=== PATIENT | female | born 1970 | race Caucasian/White ===

== ENCOUNTER 2018-06-11 17:09 | Observation (INO) | payer MEDICARE, OTHER ==
[~2018-06-11] VITALS: Ht 167.6 cm; Wt 82.8 kg
[~2018-06-11 17:09] MED LIST: ALBU8.5H8 INH; AMIT50TA PO; AMITIZA PO; ASCO100019 PO; CHOL3000 PO; GABA300C10 PO; LEVO125T5 PO; LIOT25TA3 PO; MODA100T22 PO; NAPR220T77 PO; OXYC-307 PO; ZOLP10TA PO; [UNRECOGNIZED DRUG - CODE] TD
[2018-06-11 17:39] LABS: BASOPHILS # (AUTO) 0.03 x10^3/uL (0-0.1); BASOPHILS % (AUTO) 1 % (0-1); EOSINOPHILS # (AUTO) 0.26 x10^3/uL (0-0.4); EOSINOPHILS % (AUTO) 4 % (1-7); LYMPHOCYTES # (AUTO) 2.24 x10^3/uL (1-3.4); LYMPHOCYTES % (AUTO) 33 % (22-44); MD NO; MEAN CORPUSCULAR HEMOGLOBIN 31.7 pg (27.0-34.8); MEAN CORPUSCULAR HGB CONC 33.7 g/dL (32.4-35.8); MEAN CORPUSCULAR VOLUME 93.9 fL (80-100); MEAN PLATELET VOLUME 8.1 fL (7.4-10.4); MONOCYTES # (AUTO) 0.57 x10^3/uL (0.2-0.8); MONOCYTES % (AUTO) 8 % (2-9); NEUTROPHILS % (AUTO) 55 % (42-75); PLATELET COUNT 236 x10^3/uL (130-400); RED BLOOD COUNT 4.93 x10^6/uL (3.82-5.3); RED CELL DISTRIBUTION WIDTH 13.8 % (9.6-15.2)
[2018-06-11 17:48] LABS: ANION GAP 4 mmol/L (5-15); CALCIUM 8.8 mg/dL (8.5-10.1); CHLORIDE 105 mmol/L (98-107)
[2018-06-11 17:54] LABS: ALANINE AMINOTRANSFERASE 374 U/L (12-78); ALKALINE PHOSPHATASE 107 U/L (45-117); BILIRUBIN,TOTAL 0.4 mg/dL (0.2-1.0); FREE T4 (FREE THYROXINE) 0.56 ng/dL (0.76-1.46); TOTAL PROTEIN 7.2 g/dL (6.4-8.2); TROPONIN I < 0.015 ng/mL (0.000-0.045)
--- NOTE | 2018-06-11 19:23 | NUR ---
TO ROOM FROM LOBBY. NAD.
--- NOTE | 2018-06-11 20:01 | NUR ---
PT SENT BY MD FOR HIGH HR 130'S IN TRIAGE. HR IMPROVED IN ROOM. VSS. PIV STARTED. PT TO US.
[2018-06-11] MEDS ORDERED: HYDROmorphone 1 MG/ML, 1ML ONE (20:35)
[2018-06-11] MEDS: HYDROmorphone 2 MG/ML, 1ML IVPush PRN (20:37)
[2018-06-11] MEDS ORDERED: GABA800T5 PO (20:41)
[2018-06-11] MEDS ORDERED: OMNIPAQUE 350 MG/ML, 100ML BOTTLE ONE (21:00)
[2018-06-11] MEDS ORDERED: ONDANSETRON 2MG/ML, 2ML ONE (21:25)
[2018-06-11] MEDS ORDERED: ONDANSETRON 2MG/ML, 2ML IVPush ONE (21:30)
--- NOTE | 2018-06-11 21:33 | NUR ---
PT MEDICATED FOR PAIN AND NAUSEA. VSS. PT TO BE ADMITTED. CALL LIGHT IN REACH
--- NOTE | 2018-06-11 21:49 | NUR ---
RECEIVED REPORT FROM TOBIAS MARTIN, ASSUMING CARE OF PT AT THIS TIME
--- NOTE | 2018-06-11 21:50 | NUR ---
AWAITING ADMIT ORDER AT THIS TIME FOR PT PLACEMENT
--- NOTE | 2018-06-11 21:58 | NUR ---
MD TO BEDSIDE TO UPDATE PT AND FAMILY ON POC
--- NOTE | 2018-06-11 22:43 | NUR ---
HOSPITALIST TO BEDSIDE FOR ASSESSMENT AND ADMIT
--- NOTE | 2018-06-11 22:49 | NUR ---
REPORT GIVEN TO LEXY MARTIN, PT BEING TRANSFERED TO FLOOR
[2018-06-11 23:21] VITALS: BP 135/85
[2018-06-12] MEDS: HYDROmorphone 2 MG/ML, 1ML IVPush PRN ×6 (00:01→21:20)
[2018-06-12] MEDS ORDERED: hydrALAzine 20 MG/ML, 1ML IVPush PRN (01:30)
[2018-06-12] MEDS ORDERED: POLYETHYLENE GLYCOL 17 GM PACKET PO PRN (01:30)
[2018-06-12] MEDS ORDERED: BISACODYL 10 MG SUPP PR PRN (01:30)
[2018-06-12] MEDS ORDERED: ACETAMINOPHEN 325 MG TABLET PO PRN (01:30)
[2018-06-12] MEDS ORDERED: PROMETHAZINE 25 MG/ML, 1ML IM PRN (01:30)
[2018-06-12] MEDS ORDERED: ONDANSETRON 2MG/ML, 2ML IVPush PRN (01:30)
[2018-06-12] MEDS ORDERED: DOCUSATE 100 MG CAPSULE PO PRN (01:30)
[2018-06-12] MEDS ORDERED: LABETALOL 5 MG/ML SYRINGE IVPush PRN (01:30)
[2018-06-12] MEDS ORDERED: OXYcodone IR 5MG TABLET PO PRN (01:30)
[2018-06-12] MEDS ORDERED: NITROGLYCERIN 0.4 MG BOTTLE (25 TABS) SL PRN (01:30)
[2018-06-12 01:59] VITALS: BP_SYST 114; BP_SYST 122; BP_DIAS 78; BP_DIAS 83
[2018-06-12 02:07] LABS: BASOPHILS # (AUTO) 0.02 x10^3/uL (0-0.1); BASOPHILS % (AUTO) 0 % (0-1); EOSINOPHILS # (AUTO) 0.25 x10^3/uL (0-0.4); EOSINOPHILS % (AUTO) 4 % (1-7); LYMPHOCYTES # (AUTO) 1.91 x10^3/uL (1-3.4); LYMPHOCYTES % (AUTO) 30 % (22-44); MD NO; MEAN CORPUSCULAR HEMOGLOBIN 31.4 pg (27.0-34.8); MEAN CORPUSCULAR HGB CONC 33.7 g/dL (32.4-35.8); MEAN CORPUSCULAR VOLUME 93.1 fL (80-100); MEAN PLATELET VOLUME 8.1 fL (7.4-10.4); MONOCYTES # (AUTO) 0.61 x10^3/uL (0.2-0.8); MONOCYTES % (AUTO) 10 % (2-9); NEUTROPHILS # (AUTO) 3.55 x10^3/uL (1.8-6.8); NEUTROPHILS % (AUTO) 56 % (42-75); PLATELET COUNT 204 x10^3/uL (130-400); RED BLOOD COUNT 4.76 x10^6/uL (3.82-5.3); RED CELL DISTRIBUTION WIDTH 13.5 % (9.6-15.2)
[2018-06-12] MEDS: PANTOPRAZOLE 40 MG IV IVPush SCH ×2 (02:07→13:30)
[2018-06-12] MEDS: ONDANSETRON ODT 4 MG PO PRN ×2 (02:07→09:29)
[2018-06-12] MEDS: HEPARIN 5,000 UNITS/ML, 1ML SQ SCH ×3 (02:07→15:17)
[2018-06-12] MEDS: SODIUM CHLORIDE 0.9% 1,000 ML IV SCH ×2 (02:08→15:00)
[2018-06-12 02:13] LABS: ALANINE AMINOTRANSFERASE 356 U/L (12-78); ALBUMIN 3.8 g/dL (3.4-5.0); ANION GAP 7 mmol/L (5-15); CALCIUM 8.2 mg/dL (8.5-10.1); CHLORIDE 108 mmol/L (98-107); CHOLESTEROL, TOTAL 209 mg/dL (140-239); CREATININE 0.74 mg/dL (0.55-1.02)
[2018-06-12 02:16] LABS: ALKALINE PHOSPHATASE 91 U/L (45-117); BILIRUBIN,TOTAL 0.6 mg/dL (0.2-1.0); CHOL/HDL RATIO 2.8; HDL CHOL % 35 % (28-40); HDL CHOLESTEROL (DIRECT) 74 mg/dL (40-60); LDL CHOLESTEROL,CALCULATED 124 mg/dL (54-169); LDL/HDL RATIO 1.7 (0.5-3.0); TOTAL PROTEIN 6.8 g/dL (6.4-8.2); TRIGLYCERIDES 57 mg/dL (50-200); VLDL CHOLESTEROL 11 mg/dL (0-25)
[2018-06-12] MEDS: AMITRIPTYLINE 50 MG TABLET PO SCH ×2 (02:40→20:41)
[2018-06-12] MEDS: GABAPENTIN 400 MG CAPSULE PO SCH ×4 (02:41→20:41)
[2018-06-12 02:43] LABS: FREE T4 (FREE THYROXINE) 0.61 ng/dL (0.76-1.46); TROPONIN I < 0.015 ng/mL (0.000-0.045)
[2018-06-12 03:03] LABS: MICROSCOPIC NOT IND
[2018-06-12 03:09] LABS: CULTURE INDICATED? NO
[2018-06-12 08:00] VITALS: BP 118/79
[2018-06-12] MEDS: CHOLECALCIFEROL 1,000 UNIT TABLET PO SCH (09:00)
[2018-06-12] MEDS: ASCORBIC ACID 500 MG TABLET PO SCH (09:00)
[2018-06-12] MEDS ORDERED: ALBUTEROL SULFATE 2.5 MG/3 ML NPPB SCH (09:00)
[2018-06-12] MEDS ORDERED: AMITRIPTYLINE 50 MG TABLET PO SCH (09:00)
[2018-06-12] MEDS ORDERED: GABAPENTIN 400 MG CAPSULE PO SCH (09:00)
[2018-06-12 09:23] LABS: TROPONIN I < 0.015 ng/mL (0.000-0.045)
[2018-06-12] MEDS ORDERED: REGADENOSON 0.4 MG/5 ML SYRINGE ONE (09:44)
[2018-06-12 13:30] VITALS: BP 104/66
[2018-06-12] MEDS ORDERED: ALBUTEROL SULFATE 2.5 MG/3 ML ONE (14:19)
[2018-06-12] MEDS ORDERED: ALBUTEROL SULFATE 2.5 MG/3 ML NPPB PRN (14:30)
[2018-06-12] MEDS ORDERED: CALCIUM CARBONATE 500 MG TAB.CHEW PO PRN (17:30)
[2018-06-12 19:54] VITALS: BP 104/74
[2018-06-12] MEDS: MAALOX/HYOSCYAMINE/LIDOCAINE 45 ML BTL PO PRN (20:54)
[2018-06-12] MEDS ORDERED: OMNIPAQUE 350 MG/ML, 100ML BOTTLE ONE (21:52)
[2018-06-13] MEDS: PANTOPRAZOLE 40 MG IV IVPush SCH ×2 (01:17→13:30)
[2018-06-13] MEDS: HEPARIN 5,000 UNITS/ML, 1ML SQ SCH ×3 (01:17→20:01)
[2018-06-13 01:48] VITALS: BP 108/69
[2018-06-13] MEDS: HYDROmorphone 2 MG/ML, 1ML IVPush PRN ×2 (04:05→11:32)
[2018-06-13 05:24] LABS: BASOPHILS # (AUTO) 0.03 x10^3/uL (0-0.1); BASOPHILS % (AUTO) 1 % (0-1); EOSINOPHILS % (AUTO) 4 % (1-7); LYMPHOCYTES # (AUTO) 2.16 x10^3/uL (1-3.4); LYMPHOCYTES % (AUTO) 39 % (22-44); MD NO; MEAN CORPUSCULAR HEMOGLOBIN 31.6 pg (27.0-34.8); MEAN CORPUSCULAR HGB CONC 33.5 g/dL (32.4-35.8); MEAN CORPUSCULAR VOLUME 94.5 fL (80-100); MEAN PLATELET VOLUME 8.2 fL (7.4-10.4); MONOCYTES # (AUTO) 0.55 x10^3/uL (0.2-0.8); MONOCYTES % (AUTO) 10 % (2-9); NEUTROPHILS # (AUTO) 2.61 x10^3/uL (1.8-6.8); NEUTROPHILS % (AUTO) 47 % (42-75); PLATELET COUNT 179 x10^3/uL (130-400); RED BLOOD COUNT 4.19 x10^6/uL (3.82-5.3); RED CELL DISTRIBUTION WIDTH 14.3 % (9.6-15.2)
[2018-06-13 05:35] LABS: CHLORIDE 108 mmol/L (98-107)
[2018-06-13 05:44] LABS: ALANINE AMINOTRANSFERASE 280 U/L (12-78); ALKALINE PHOSPHATASE 79 U/L (45-117); ANION GAP 5 mmol/L (5-15); BILIRUBIN,TOTAL 0.3 mg/dL (0.2-1.0); CALCIUM 7.8 mg/dL (8.5-10.1); CREATININE 0.65 mg/dL (0.55-1.02)
[2018-06-13 07:11] VITALS: BP 101/69
[2018-06-13] MEDS: MAALOX/HYOSCYAMINE/LIDOCAINE 45 ML BTL PO PRN (08:23)
[2018-06-13] MEDS ORDERED: METOCLOPRAMIDE 5 MG/ML, 2ML IVPush PRN (09:30)
[2018-06-13] MEDS: CHOLECALCIFEROL 1,000 UNIT TABLET PO SCH (10:27)
[2018-06-13] MEDS: ASCORBIC ACID 500 MG TABLET PO SCH (10:27)
[2018-06-13] MEDS: BISACODYL 10 MG SUPP PR SCH (10:28)
[2018-06-13] MEDS: GABAPENTIN 400 MG CAPSULE PO SCH ×2 (10:28→20:01)
[2018-06-13] MEDS: SENNA/DOCUSATE TABLET PO SCH (10:28)
[2018-06-13 13:08] VITALS: BP 134/84
[2018-06-13] MEDS ORDERED: MAGNESIUM CITRATE 300ML ORAL SOL PO PRN (17:00)
[2018-06-13] MEDS: METHOCARBAMOL 500 MG TABLET PO PRN (20:01)
[2018-06-13] MEDS: AMITRIPTYLINE 50 MG TABLET PO SCH (20:01)
[2018-06-13 20:31] VITALS: BP 119/81
[2018-06-14 02:40] VITALS: BP 123/81
[2018-06-14] MEDS: HEPARIN 5,000 UNITS/ML, 1ML SQ SCH ×3 (03:30→22:59)
[2018-06-14 05:03] LABS: BASOPHILS # (AUTO) 0.05 x10^3/uL (0-0.1); BASOPHILS % (AUTO) 1 % (0-1); EOSINOPHILS % (AUTO) 4 % (1-7); LYMPHOCYTES # (AUTO) 1.96 x10^3/uL (1-3.4); LYMPHOCYTES % (AUTO) 41 % (22-44); MD NO; MEAN CORPUSCULAR HEMOGLOBIN 31.6 pg (27.0-34.8); MEAN CORPUSCULAR HGB CONC 33.7 g/dL (32.4-35.8); MEAN CORPUSCULAR VOLUME 93.9 fL (80-100); MEAN PLATELET VOLUME 8.2 fL (7.4-10.4); MONOCYTES # (AUTO) 0.42 x10^3/uL (0.2-0.8); MONOCYTES % (AUTO) 9 % (2-9); NEUTROPHILS # (AUTO) 2.23 x10^3/uL (1.8-6.8); NEUTROPHILS % (AUTO) 46 % (42-75); PLATELET COUNT 176 x10^3/uL (130-400); RED BLOOD COUNT 4.57 x10^6/uL (3.82-5.3); RED CELL DISTRIBUTION WIDTH 14.2 % (9.6-15.2)
[2018-06-14 05:12] LABS: ALBUMIN 3.4 g/dL (3.4-5.0); ANION GAP 4 mmol/L (5-15); CALCIUM 8.3 mg/dL (8.5-10.1); CHLORIDE 107 mmol/L (98-107)
[2018-06-14 05:17] LABS: ALANINE AMINOTRANSFERASE 369 U/L (12-78); ALKALINE PHOSPHATASE 108 U/L (45-117); BILIRUBIN,TOTAL 0.7 mg/dL (0.2-1.0); CREATININE 0.74 mg/dL (0.55-1.02); TOTAL PROTEIN 6.3 g/dL (6.4-8.2)
[2018-06-14] MEDS ORDERED: GOLYTELY 4,000ML ORAL.SOL PO ONE (08:30)
[2018-06-14] MEDS: SENNA/DOCUSATE TABLET PO SCH (08:35)
[2018-06-14 08:39] VITALS: BP 121/87
[2018-06-14] MEDS: BISACODYL 10 MG SUPP PR SCH (09:00)
[2018-06-14] MEDS ORDERED: BISACODYL 10 MG SUPP PR SCH (09:00)
[2018-06-14] MEDS: ASCORBIC ACID 500 MG TABLET PO SCH (09:00)
[2018-06-14] MEDS: GABAPENTIN 400 MG CAPSULE PO SCH ×3 (09:00→23:00)
[2018-06-14] MEDS: CHOLECALCIFEROL 1,000 UNIT TABLET PO SCH (09:00)
[2018-06-14] MEDS: PANTOPRAZOLE 40 MG IV IVPush SCH ×2 (09:57→22:59)
[2018-06-14 12:38] VITALS: BP 125/84
[2018-06-14 19:19] VITALS: BP 117/74
[2018-06-14 21:15] VITALS: BP 122/79
[2018-06-14] MEDS: AMITRIPTYLINE 50 MG TABLET PO SCH (23:00)
[2018-06-14] MEDS: METHOCARBAMOL 500 MG TABLET PO PRN (23:03)
[2018-06-15 01:27] VITALS: BP 126/82
[2018-06-15] MEDS: HEPARIN 5,000 UNITS/ML, 1ML SQ SCH (03:30)
[2018-06-15 05:40] LABS: ALANINE AMINOTRANSFERASE 318 U/L (12-78); ALBUMIN 3.1 g/dL (3.4-5.0); ANION GAP 4 mmol/L (5-15); CHLORIDE 108 mmol/L (98-107); CREATININE 0.76 mg/dL (0.55-1.02)
[2018-06-15 05:42] LABS: ALKALINE PHOSPHATASE 97 U/L (45-117); BILIRUBIN,TOTAL 0.4 mg/dL (0.2-1.0); TOTAL PROTEIN 5.9 g/dL (6.4-8.2)
[2018-06-15 07:10] VITALS: BP 114/78
[2018-06-15] MEDS: GABAPENTIN 400 MG CAPSULE PO SCH (08:21)
[2018-06-15] MEDS: ASCORBIC ACID 500 MG TABLET PO SCH (08:22)
[2018-06-15] MEDS: PANTOPRAZOLE 40 MG IV IVPush SCH (08:23)
[2018-06-15] MEDS: SENNA/DOCUSATE TABLET PO SCH (08:23)
[2018-06-15] MEDS: BISACODYL 10 MG SUPP PR SCH (08:23)
[2018-06-15] MEDS: CHOLECALCIFEROL 1,000 UNIT TABLET PO SCH (08:23)
[2018-06-15] MEDS ORDERED: POLY17PO5 PO (09:15)
== END 2018-06-15 11:49 | disposition home or self-care (01) ==
LOC: ED 20:09 → EDIP 22:04 → INTOOBSV 22:04 → 5SO 22:56 → 3NE 06-14 21:15
PROVIDERS: ADMIT Internal Medicine; ATTEND Internal Medicine
DX: R07.89 Other chest pain (principal); R00.2 Palpitations; N17.0 Acute kidney failure with tubular necrosis; E03.9 Hypothyroidism, unspecified; F45.21 Hypochondriasis; R10.9 Unspecified abdominal pain; R11.2 Nausea with vomiting, unspecified; G89.29 Other chronic pain; J45.909 Unspecified asthma, uncomplicated; K21.9 Gastro-esophageal reflux disease without esophagitis; N81.10 Cystocele, unspecified; N81.6 Rectocele; K59.09 Other constipation; Z90.49 Acquired absence of other specified parts of digestive tract
CPT/HCPCS: 36415; 71046; 71275; 74177; 74181; 76700; 78452; 80053; 80061; 80074; 81003; 82550; 82784; 83036; 83516; 83690; 83735; 83880; 84439; 84443; 84484; 85025; 86677; 93005; 93017; 93306; 94640; 96361; 96372; 96374; 96375; 96376; 97162; 97165; 99285; A9502; C9113; C9898; G0378; J1170; J1644; J2405; J2765; J2785; J7030; J7613; Q0162; Q9967

== ENCOUNTER 2019-12-13 11:37 | Emergency (ER) | payer MEDICARE ==
[~2019-12-13] VITALS: Ht 167.6 cm; Wt 82.0 kg
[~2019-12-13 11:37] MED LIST changes: +GABA800T5 PO; +LIOT25TA12 PO; -LIOT25TA3 PO; +POLY17PO5 PO
--- NOTE | 2019-12-13 11:58 | NUR ---
PT REPORTS SHE HAD RIGHT HIP SURGERY LAST SATURDAY. 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 PLACED ON VITALS MONITORS, SAFETY PRECAUTIONS IN PLACE. CALL LIGHT WITHIN REACH.
--- NOTE | 2019-12-13 12:11 | NUR ---
PT TRANSPORTED TO [facility].
[2019-12-13 12:22] LABS: BASOPHILS # (AUTO) 0.01 x10^3/uL (0-0.1); BASOPHILS % (AUTO) 0 % (0-1); EOSINOPHILS # (AUTO) 0.17 x10^3/uL (0-0.4); EOSINOPHILS % (AUTO) 4 % (1-7); LYMPHOCYTES # (AUTO) 1.11 x10^3/uL (1-3.4); LYMPHOCYTES % (AUTO) 27 % (22-44); MD NO; MEAN CORPUSCULAR HEMOGLOBIN 30.3 pg (27.0-34.8); MEAN CORPUSCULAR HGB CONC 32.8 g/dL (32.4-35.8); MEAN CORPUSCULAR VOLUME 92.4 fL (80-100); MEAN PLATELET VOLUME 8.3 fL (7.4-10.4); MONOCYTES # (AUTO) 0.42 x10^3/uL (0.2-0.8); MONOCYTES % (AUTO) 10 % (2-9); NEUTROPHILS # (AUTO) 2.42 x10^3/uL (1.8-6.8); NEUTROPHILS % (AUTO) 59 % (42-75); PLATELET COUNT 199 x10^3/uL (130-400); RED CELL DISTRIBUTION WIDTH 12.1 % (9.6-15.2)
[2019-12-13 12:30] LABS: ANION GAP 6 mmol/L (5-15); CALCIUM 8.9 mg/dL (8.5-10.1); CHLORIDE 112 mmol/L (98-107)
[2019-12-13] MEDS ORDERED: ONDANSETRON 2MG/ML, 2ML IVPush ONE (12:30)
[2019-12-13] MEDS ORDERED: SODIUM CHLORIDE 0.9% 1,000ML IVBOLUS ONE (12:30)
[2019-12-13] MEDS ORDERED: HYDROmorphone 2 MG/ML, 1ML IVPush PRN (12:30)
[2019-12-13] MEDS ORDERED: SODIUM CHLORIDE FLUSH 10ML SYR IVF ONE (12:30)
[2019-12-13] MEDS ORDERED: DEXAMETHASONE 4 MG/ML, 1ML IVPush ONE (12:30)
[2019-12-13 12:33] LABS: ALANINE AMINOTRANSFERASE 202 U/L (12-78); ALKALINE PHOSPHATASE 329 U/L (45-117); BILIRUBIN,TOTAL 0.3 mg/dL (0.2-1.0); CREATININE 0.54 mg/dL (0.55-1.02); TOTAL PROTEIN 6.2 g/dL (6.4-8.2)
[2019-12-13] MEDS ORDERED: HYDROmorphone 2 MG/ML, 1ML ONE (12:36)
[2019-12-13] MEDS ORDERED: DEXAMETHASONE 4 MG/ML, 5ML ONE (12:36)
[2019-12-13] MEDS ORDERED: ONDANSETRON 2MG/ML, 2ML ONE (12:37)
[2019-12-13 12:42] LABS: C-REACTIVE PROTEIN, QUANT 0.81 mg/dL (0.02-0.49)
[2019-12-13 12:48] LABS: INTERNATIONAL NORMALIZED RATIO 0.88 (0.93-1.1); PROTHROMBIN TIME 9.1 Seconds (9.6-11.5)
[2019-12-13] MEDS ORDERED: DEXAMETHASONE 4 MG/ML, 1ML ONE (12:48)
--- NOTE | 2019-12-13 13:28 | NUR ---
PT REPORTS PAIN RELIEF AFTER MEDS, RESTING ON GURNEY, S/O AT BEDSIDE. VSS.
--- NOTE | 2019-12-13 13:41 | NUR ---
PT TRANSPORTED TO CT.
[2019-12-13] MEDS ORDERED: OMNIPAQUE 350 MG/ML, 100ML BOTTLE ONE (13:57)
[2019-12-13 15:02] VITALS: BP 135/74
[2019-12-15 15:24] LABS: ANA SCREEN NEGATIVE (Negative)
== END 2019-12-13 15:05 | disposition home or self-care (01) ==
LOC: ED 12:50
DX: T78.49XA Other allergy, initial encounter (principal); F41.9 Anxiety disorder, unspecified; M25.551 Pain in right hip; E03.9 Hypothyroidism, unspecified; X58.XXXA Exposure to other specified factors, initial encounter
CPT/HCPCS: 36415; 73502; 74177; 80053; 83690; 85025; 85610; 85730; 86038; 86140; 96361; 96374; 96375; 99285; J1100; J1170; J2405; J7030; Q0177; Q9967

== ENCOUNTER 2020-03-10 14:13 | Emergency (ER) | payer MEDICARE ==
[~2020-03-10] VITALS: Ht 167.6 cm; Wt 88.7 kg
--- NOTE | 2020-03-10 14:22 | NUR ---
triage note: EKG done in triage
[2020-03-10] MEDS ORDERED: ALBUTEROL/IPRATROPIUM 2.5MG/0.5MG, 3 ML NPPB ONE (14:30)
[2020-03-10 15:02] LABS: BASOPHILS % (AUTO) 0 % (0-1); EOSINOPHILS % (AUTO) 0 % (1-7); LYMPHOCYTES % (AUTO) 15 % (22-44); MEAN CORPUSCULAR HEMOGLOBIN 28.7 pg (27.0-34.8); MEAN CORPUSCULAR HGB CONC 32.7 g/dL (32.4-35.8); MEAN PLATELET VOLUME 8.8 fL (7.4-10.4); MONOCYTES % (AUTO) 10 % (2-9); NEUTROPHILS % (AUTO) 75 % (42-75); PLATELET COUNT 196 x10^3/uL (130-400); RED BLOOD COUNT 5.21 x10^6/uL (3.82-5.3); RED CELL DISTRIBUTION WIDTH 13.6 % (9.6-15.2)
[2020-03-10 15:06] LABS: MD NO
[2020-03-10 15:43] LABS: ANION GAP 4 mmol/L (5-15); BILIRUBIN,TOTAL 0.1 mg/dL (0.2-1.0); CALCIUM 8.6 mg/dL (8.5-10.1); CHLORIDE 109 mmol/L (98-107); CREATININE 0.92 mg/dL (0.55-1.02)
[2020-03-10 15:44] LABS: ALANINE AMINOTRANSFERASE 30 U/L (12-78); ALBUMIN 3.8 g/dL (3.4-5.0); ALKALINE PHOSPHATASE 109 U/L (45-117); TOTAL PROTEIN 7.4 g/dL (6.4-8.2)
--- NOTE | 2020-03-10 15:54 | NUR ---
PT TO ROOM FROM LOBBY, GAIT STEADY
[2020-03-10] MEDS ORDERED: ALBUTEROL/IPRATROPIUM 2.5MG/0.5MG, 3 ML ONE (16:09)
[2020-03-10] MEDS ORDERED: DEXAMETHASONE 4 MG TABLET PO ONE (17:00)
[2020-03-10] MEDS ORDERED: IBUPROFEN 600 MG TABLET PO ONE (17:00)
[2020-03-10] MEDS ORDERED: IBUPROFEN 600 MG TABLET ONE (17:26)
[2020-03-10] MEDS ORDERED: DEXAMETHASONE 4 MG TABLET ONE (17:26)
--- NOTE | 2020-03-10 18:58 | NUR ---
report of pt from sharlene carney and assuming care of pt at this time
--- NOTE | 2020-03-10 19:43 | NUR ---
piv access established. pt resting in [facility] at this time with call light within reach. pt denies any needs at this time while awaiting ct. pt vss and updated in emr.
[2020-03-10] MEDS ORDERED: HYDROmorphone 1 MG/ML, 1ML INJ ONE (20:55)
[2020-03-10] MEDS ORDERED: HYDROmorphone 1 MG/ML, 1ML INJ IV ONE (21:00)
--- NOTE | 2020-03-10 21:14 | NUR ---
TASK RN: PT MEDICATED PER JUN, NAD, RESTING ON GURNEY, STATES "MY HEAD FEELS LIKE AN ELEPHANT IS SITTING ON IT." PT APPEARS TO BE IN DECENT SPRIRITS. BED IN LOWEST, ON MONITORING, CALL LIGHT ON LAP, BED RAILS UP, WCTM.
--- NOTE | 2020-03-10 21:25 | NUR ---
PT RESTING IN [facility] AT THIS TIME. CT PHONED AGAIN FOR TRANSPORT OF PT. AWAITING AVAILABLE TECH FOR TRANSPORT.
[2020-03-10] MEDS ORDERED: ONDANSETRON 2MG/ML, 2ML ONE (21:49)
[2020-03-10] MEDS ORDERED: ONDANSETRON 2MG/ML, 2ML IVPush ONE (22:00)
[2020-03-10] MEDS ORDERED: OMNIPAQUE 350 MG/ML, 100ML BOTTLE ONE (22:05)
--- NOTE | 2020-03-10 23:40 | NUR ---
PT D/C WITH D/C SUMMARY AND SCRIPTS. ALL QUESTIONS ANSWERED. PT AMBULATES TO REGISTRATION DESK WITH STEADY GAIT FOR D/C HOME WITH SPOUSE AND DENIES ANY OTHER NEEDS PERTAINING TO THIS VISIT. PT VSS AND UPDATED IN EMR PRIOR TO PT D/C. PT EDUCATED ON NEED TO ISOLATE AT HOME AND PRACTICE SOCIAL DISTANCING UNTIL COVID TEST RESULTED. PT VERBALIZES UNDERSTANDING.
[2020-03-10 23:42] VITALS: BP 132/84
== END 2020-03-10 23:45 | disposition home or self-care (01) ==
LOC: ED 20:10
DX: U07.1 COVID-19 (principal); J18.9 Pneumonia, unspecified organism; J02.9 Acute pharyngitis, unspecified; R07.89 Other chest pain; R05 Cough; R51.9 Headache, unspecified; M79.10 Myalgia, unspecified site; R06.02 Shortness of breath; E03.9 Hypothyroidism, unspecified
CPT/HCPCS: 36415; 71045; 71275; 80053; 85025; 85379; 87081; 87635; 87880; 93005; 94640; 96374; 99285; J1170; Q9967

== ENCOUNTER 2020-04-18 08:48 | Outpatient (CLI) | payer MEDICARE | END 2020-04-18 23:59 | disposition home or self-care (01) | LOC: RAD 08:48 | PROVIDERS: ATTEND Homeopath | DX: M79.10 Myalgia, unspecified site (principal); B34.9 Viral infection, unspecified; M19.90 Unspecified osteoarthritis, unspecified site; Z88.8 Allergy status to other drugs, medicaments and biological substances; Z88.1 Allergy status to other antibiotic agents; Z88.5 Allergy status to narcotic agent; Z91.018 Allergy to other foods; Z79.899 Other long term (current) drug therapy; Z72.89 Other problems related to lifestyle; Z82.49 Family history of ischemic heart disease and other diseases of the circulatory system | CPT/HCPCS: 36573; C1751 ==

== ENCOUNTER 2020-06-30 12:39 | Outpatient (CLI) | payer MEDICARE ==
[~2020-06-30 12:39] MED LIST changes: -OXYC-307 PO; +OXYC-380 PO
[2020-06-30] MEDS ORDERED: GADOTERATE 5 MMOL/10 ML VIAL ONE (13:00)
[2020-06-30] MEDS ORDERED: OMNIPAQUE 300 MG/ML, 10ML VIAL ONE (13:00)
[2020-06-30] MEDS ORDERED: LIDOCAINE 1%, 10ML ONE (13:02)
== END 2020-06-30 23:59 | disposition home or self-care (01) ==
LOC: RAD 12:39
PROVIDERS: ATTEND Homeopath
DX: M25.521 Pain in right elbow (principal); M77.11 Lateral epicondylitis, right elbow
CPT/HCPCS: 23350; 73085; 73222; A9575; Q9967

== ENCOUNTER → 2020-09-07 | Outpatient (CLI) | payer MEDICARE ==
[~2020-09-07] MED LIST changes: +ASPI81TA45 PO; +ATEN25TA PO; +FLUT9.9S INH; +GARL500C2 PO; +HYDR50TA99 PO; +LEVO112T4 PO; +MAGN100T PO; +MELA10CA PO; +MELO7.5T31 PO; +METH-639 PO
== END | disposition home or self-care (01) ==
LOC: STAR 11:52
PROVIDERS: ATTEND Orthopaedic Surgery
DX: Z20.822 Contact with and (suspected) exposure to COVID-19 (principal)
CPT/HCPCS: U0003; U0005

== ENCOUNTER 2020-09-12 10:37 | Inpatient (IN) | payer MEDICARE ==
[~2020-09-12] VITALS: Ht 167.6 cm; Wt 88.4 kg
[~2020-09-12 10:37] MED LIST changes: +BACITRACIN 50,000 UNIT ONE; +BACITRACIN OINT 500U/GM, 15 GM ONE; +BUPIVACAINE/PF 0.5% ONE; +EPINEPHRINE 1 MG/ML, 1ML ONE; +VANCOMYCIN 1,000 MG ONE
[2020-09-12] MEDS ORDERED: CHLORHEXIDINE 15 ML UDC PO ONE (11:30)
[2020-09-12] MEDS ORDERED: LACTATED RINGERS 1,000 ML IV SCH (11:30)
[2020-09-12 11:32] VITALS: BP 144/81
[2020-09-12] MEDS ORDERED: MIDAZOLAM 1 MG/ML, 2ML ONE (16:47)
[2020-09-12] MEDS ORDERED: FENTANYL PF 250 MCG/5ML ONE (16:47)
[2020-09-12] MEDS ORDERED: BUPIVACAINE/PF-EPI 0.5% 1:200K INFIL ONE (18:04)
[2020-09-12] MEDS ORDERED: BACITRACIN 50,000 UNIT IRRIG ONE (18:04)
[2020-09-12] MEDS ORDERED: VANCOMYCIN 1,000 MG IM ONE (18:05)
[2020-09-12] MEDS ORDERED: PROPOFOL 100 ML ONE (18:54)
[2020-09-12] MEDS ORDERED: HYDROmorphone 1 MG/ML, 1ML INJ ONE (19:27)
[2020-09-12] MEDS ORDERED: SUCCINYLCHOLINE 20 MG/ML, 10ML ONE (19:49)
[2020-09-12] MEDS ORDERED: ONDANSETRON 2MG/ML, 2ML ONE (19:49)
[2020-09-12] MEDS ORDERED: NEOSTIGMINE 1 MG/ML, 10ML ONE (19:49)
[2020-09-12] MEDS ORDERED: PROPOFOL 10 MG/ML, 20ML ONE (19:49)
[2020-09-12] MEDS ORDERED: CEFAZOLIN 1,000 MG ONE (19:49)
[2020-09-12] MEDS ORDERED: GLYCOPYRROLATE 0.2MG/1ML, 5ML ONE (19:49)
[2020-09-12] MEDS ORDERED: ROCURONIUM 10MG/ML,5ML ONE (19:49)
[2020-09-12] MEDS ORDERED: DEXAMETHASONE 4 MG/ML, 1ML ONE ×2 (19:49→20:10)
[2020-09-12] MEDS ORDERED: MEPERIDINE/PF 25MG/0.5ML IVPush PRN (20:00)
[2020-09-12] MEDS ORDERED: PROMETHAZINE 25 MG/ML, 1ML IV PRN (20:00)
[2020-09-12] MEDS ORDERED: hydrALAzine 20 MG/ML, 1ML IV PRN (20:00)
[2020-09-12] MEDS ORDERED: ALBUTEROL SULFATE 2.5 MG/3 ML NPPB PRN (20:00)
[2020-09-12] MEDS ORDERED: KETOROLAC 30 MG/1 ML IV PRN (20:00)
[2020-09-12] MEDS ORDERED: LABETALOL 5MG/ML, 20ML IV PRN ×2 (20:00→22:00)
[2020-09-12] MEDS ORDERED: DIAZEPAM 5 MG/ML, 2ML IVPush PRN (20:00)
[2020-09-12] MEDS ORDERED: ACETAMINOPHEN 325 MG TABLET PO PRN (20:00)
[2020-09-12] MEDS ORDERED: FENTANYL PF 100 MCG/2ML IV PRN (20:00)
[2020-09-12] MEDS ORDERED: HYDROmorphone 2 MG/ML, 1ML IVPush PRN ×2 (20:00→22:00)
[2020-09-12] MEDS ORDERED: OXYcodone 5 MG/5 ML ORAL.SOL UDC PO PRN (20:00)
[2020-09-12] MEDS ORDERED: OXYcodone 5 MG/5 ML ORAL.SOL UDC ONE (20:10)
[2020-09-12] MEDS ORDERED: FENTANYL PF 100 MCG/2ML ONE (20:10)
[2020-09-12] MEDS: DEXAMETHASONE 4 MG/ML, 1ML IVPush SCH (20:20)
[2020-09-12] MEDS ORDERED: DIPHENHYDRAMINE 50 MG/ML, 1ML ONE (21:06)
[2020-09-12] MEDS ORDERED: DIPHENHYDRAMINE 50 MG/ML, 1ML IVPush PRN ×2 (21:30→22:00)
[2020-09-12] MEDS: ONDANSETRON 2MG/ML, 2ML IV PRN (21:41)
[2020-09-12] MEDS ORDERED: MELATONIN 5 MG TABLET PO SCH (21:56)
[2020-09-12] MEDS ORDERED: ATENOLOL 50 MG TABLET PO SCH (21:56)
[2020-09-12] MEDS ORDERED: ACETAMINOPHEN 650 MG SUPP PR PRN (22:00)
[2020-09-12] MEDS ORDERED: CYCLOBENZAPRINE 10 MG TABLET PO PRN (22:00)
[2020-09-12] MEDS ORDERED: DIPHENHYDRAMINE 25 MG CAPSULE PO PRN (22:00)
[2020-09-12] MEDS ORDERED: ACETAMINOPHEN 500 MG TABLET PO PRN (22:00)
[2020-09-12] MEDS ORDERED: GABAPENTIN 400 MG CAPSULE PO PRN (22:00)
[2020-09-12] MEDS ORDERED: DIPHENHYDRAMINE 50 MG/ML, 1ML IM PRN (22:00)
[2020-09-12] MEDS ORDERED: BISACODYL 10 MG SUPP PR PRN (22:00)
[2020-09-12] MEDS: LABETALOL 5MG/ML, 20ML IV SCH (22:00)
[2020-09-12] MEDS ORDERED: SODIUM CHLORIDE 0.9% 1,000ML IV PRN (22:00)
[2020-09-12] MEDS ORDERED: NS + 20MEQ KCL 1,000 ML IV SCH (22:00)
[2020-09-12] MEDS ORDERED: hydrOXyzine 50MG TABLET PO PRN (22:00)
[2020-09-12] MEDS ORDERED: MAGNESIUM HYDROXIDE 8%, 30ML UDC PO PRN (22:00)
[2020-09-12] MEDS: PROMETHAZINE 25 MG/ML, 1ML IM PRN (23:08)
[2020-09-13] MEDS ORDERED: AMITRIPTYLINE 50 MG TABLET PO SCH ×2 (00:30→09:00)
[2020-09-13] MEDS: OXYcodone IR 5MG TABLET PO PRN ×3 (00:43→09:13)
[2020-09-13] MEDS ORDERED: CEFAZOLIN PMX 1GM/50ML 50 ML IVPB SCH (03:30)
[2020-09-13] MEDS: DEXAMETHASONE 4 MG/ML, 1ML IVPush SCH (04:07)
[2020-09-13 04:11] VITALS: BP 127/71
[2020-09-13] MEDS: PROMETHAZINE 25 MG/ML, 1ML IM PRN (04:22)
[2020-09-13] MEDS: ONDANSETRON 2MG/ML, 2ML IV PRN (04:22)
[2020-09-13 05:30] LABS: BASOPHILS % (AUTO) 0 % (0-1); EOSINOPHILS % (AUTO) 0 % (1-7); LYMPHOCYTES % (AUTO) 6 % (22-44); MEAN CORPUSCULAR HEMOGLOBIN 31.2 pg (27.0-34.8); MEAN CORPUSCULAR HGB CONC 33.7 g/dL (32.4-35.8); MEAN PLATELET VOLUME 8.9 fL (7.4-10.4); MONOCYTES % (AUTO) 3 % (2-9); NEUTROPHILS % (AUTO) 91 % (42-75); PLATELET COUNT 186 x10^3/uL (130-400); RED BLOOD COUNT 3.98 x10^6/uL (3.82-5.3); RED CELL DISTRIBUTION WIDTH 13.3 % (9.6-15.2)
[2020-09-13 05:32] LABS: MD NO
[2020-09-13 05:42] LABS: ANION GAP 6 mmol/L (5-15); CHLORIDE 108 mmol/L (98-107)
[2020-09-13] MEDS ORDERED: LEVOTHYROXINE 112 MCG TABLET PO SCH (06:00)
[2020-09-13] MEDS: LABETALOL 5MG/ML, 20ML IV SCH (06:00)
[2020-09-13 07:31] VITALS: BP 132/82
[2020-09-13] MEDS ORDERED: OXYC5TAB98 PO (07:36)
[2020-09-13] MEDS ORDERED: CYCL10TA2 PO (07:36)
[2020-09-13] MEDS ORDERED: METH4TAB6 PO (07:36)
[2020-09-13] MEDS ORDERED: SENN-220 PO (07:36)
[2020-09-13] MEDS ORDERED: ACET-1600 PO (07:36)
[2020-09-13] MEDS ORDERED: APIX2.5T PO (07:36)
[2020-09-13] MEDS ORDERED: ONDA4TAB7 PO (07:36)
[2020-09-13] MEDS ORDERED: FLUTICASONE NASAL SPRAY 16GM NAS SCH (09:00)
[2020-09-13] MEDS ORDERED: LIOTHYRONINE 25 MCG TABLET PO SCH (09:00)
[2020-09-13] MEDS ORDERED: SENNA/DOCUSATE TABLET PO SCH (09:00)
[2020-09-13 09:40] VITALS: BP 121/78
[2020-09-14] MEDS ORDERED: HEPARIN 5,000 UNITS/ML, 1ML SQ SCH (18:00)
== END 2020-09-13 10:45 | disposition still patient (30) | DRG 473 ==
LOC: OUT 10:37 → 4NE 21:25 → OUT 22:12 → 4NE 22:13 → DCLOUNGE 09-13 10:31
PROVIDERS: ADMIT Orthopaedic Surgery; ATTEND Orthopaedic Surgery
PROC: 0RG10A0 Fusion of Cervical Vertebral Joint with Interbody Fusion Device, Anterior Approach, Anterior Column, Open Approach (ICD-10-PCS; 2020-09-12)
PROC: 01N10ZZ Release Cervical Nerve, Open Approach (ICD-10-PCS; 2020-09-12)
PROC: 0RB30ZZ Excision of Cervical Vertebral Disc, Open Approach (ICD-10-PCS; principal; 2020-09-12 14:30)
DX: M48.02 Spinal stenosis, cervical region (principal); M54.12 Radiculopathy, cervical region; Z86.711 Personal history of pulmonary embolism; Z98.1 Arthrodesis status; Z88.5 Allergy status to narcotic agent; Z88.0 Allergy status to penicillin; Z88.8 Allergy status to other drugs, medicaments and biological substances
CPT/HCPCS: 36415; 72040; 80048; 85025; 86850; 86900; 95938; 95941; C1713; G0378; J0171; J0690; J1100; J1170; J2250; J2405; J2550; J2704; J2710; J3010; J3370; J3480; C1762; J0330; J1200; J7120